=== PATIENT | female | born 1975 | race Caucasian/White ===

== ENCOUNTER 2023-04-24 16:45 | Outpatient (CLI) | payer SELFPAY | END 2023-04-24 16:46 | disposition home or self-care (01) | PROVIDERS: PCP Family Medicine; Visit Provider Family Medicine | DX: Z00.00 Encounter for general adult medical examination without abnormal findings (principal); E03.9 Hypothyroidism, unspecified; E78.5 Hyperlipidemia, unspecified; Z11.59 Encounter for screening for other viral diseases; Z13.6 Encounter for screening for cardiovascular disorders | CPT/HCPCS: 80053; 80061; 84443; 86803 ==

== ENCOUNTER 2023-07-18 17:41 | Outpatient (CLI) | payer BC, SELFPAY ==
--- NOTE | 2023-07-18 17:40 | CRLHL7_ITS ---
For Patients: As a result of the Cures Act, medical imaging exams and procedure reports are released immediately into your electronic medical record. You may view this report before your referring provider. If you have questions, please contact your health care provider. BILATERAL SCREENING MAMMOGRAM WITH COMPUTER-AIDED DETECTION AND TOMOSYNTHESIS TECHNIQUE: CC and MLO views were obtained. These mammographic images have been obtained using full-field digital technique. These mammographic images were interpreted with the benefit of computer-aided detection. Breast Tomosynthesis was used in this interpretation. COMPARISON FILM: 01/23/22, 04/14/20, 02/16/19. FINDINGS: There are scattered areas of fibroglandular density IMPRESSION: There is no radiographic evidence for malignancy. ASSESSMENT: BI-RADS Category 1: Negative RECOMMENDATION: Routine screening mammogram in 1 year. A lay language report of this examination will be provided to the patient. ABDULLAHI SYED M.D. Diagnostic/Nuclear Medicine Radiologist [email or web address] ANIL:[email or web address] Transcribed: 3:35 p.mEdwardo barker/Dictated by: Abdullahi Syed MD @ 07/20/2023 8:47:00 AM (Electronically Signed)
== END 2023-07-18 17:42 | disposition home or self-care (01) ==
PROVIDERS: PCP Family Medicine; Visit Provider Family Medicine
DX: Z12.31 Encounter for screening mammogram for malignant neoplasm of breast (principal)
CPT/HCPCS: 77063; 77067

== ENCOUNTER 2023-08-29 07:50 | Outpatient (CLI) | payer BC, SELFPAY ==
--- NOTE | 2023-08-29 08:48 | W.ANESCHARGE ---
Anesthesia Charges Start Date/Time Anesthesia Start Date: 08/29/23 Anesthesia Start Time: 08:27 Stop Date/Time Anesthesia Stop Date: 08/29/23 Anesthesia Stop Time: 08:45
--- NOTE | 2023-08-29 10:45 | W.ANESCHARGE ---
Anesthesia Charges Start Date/Time Anesthesia Start Date: 08/29/23 Anesthesia Start Time: 08:27 Stop Date/Time Anesthesia Stop Date: 08/29/23 Anesthesia Stop Time: 08:45
== END 2023-08-29 07:51 | disposition home or self-care (01) ==
LOC: OP CLINIC 07:51
PROVIDERS: PCP Family Medicine; Visit Provider Internal Medicine
DX: Z12.11 Encounter for screening for malignant neoplasm of colon (principal)
CPT/HCPCS: 00811; 00812; 45378; J2704

== ENCOUNTER 2024-05-06 13:33 | Outpatient (CLI) | payer BC, SELFPAY | END 2024-05-06 13:34 | disposition home or self-care (01) | PROVIDERS: PCP Family Medicine; Visit Provider Family Medicine | DX: Z00.00 Encounter for general adult medical examination without abnormal findings (principal); E03.9 Hypothyroidism, unspecified; E78.5 Hyperlipidemia, unspecified; M13.80 Other specified arthritis, unspecified site; M25.562 Pain in left knee | CPT/HCPCS: 80053; 80061; 84439; 84443; 86038; 86140 ==

== ENCOUNTER 2024-06-14 09:06 | Outpatient (CLI) | payer BC, SELFPAY | END 2024-06-14 09:07 | disposition home or self-care (01) | LOC: NFLDREF 06-18 07:43 | PROVIDERS: PCP Family Medicine; Referring Provider Family Medicine; Visit Provider Family Medicine | DX: E03.9 Hypothyroidism, unspecified (principal); G47.00 Insomnia, unspecified; F32.9 Major depressive disorder, single episode, unspecified | CPT/HCPCS: 82306; 84439; 84443 ==

== ENCOUNTER 2024-08-05 14:22 | Outpatient (CLI) | payer MEDICAID, SELFPAY | END 2024-08-05 14:23 | disposition home or self-care (01) | LOC: MAMMO 14:24 | PROVIDERS: PCP Family Medicine; Visit Provider Family Medicine | DX: Z12.31 Encounter for screening mammogram for malignant neoplasm of breast (principal) | CPT/HCPCS: 77063; 77067 ==